=== PATIENT | male | born 1965 | race Hispanic/Latino ===

== ENCOUNTER 2017-03-01 02:36 | Emergency (ER) | payer MEDICAID, OTHER ==
[2017-03-01 02:49] VITALS: BP 145/44; PULSE 90; RESP 18; TEMP 98; O2SAT 98; BMI 23.6
--- NOTE | 2017-03-01 02:57 | ED PDOC ---
Arrival/HPI - General Chief Complaint: Back Pain Time Seen by Provider: 03/01/17 02:36 Historian: Patient - History of Present Illness Narrative History of Present Illness (Text): 03/01/17 02:51 Sid Irby is a 51 year old male who presents to the emergency department complaining of lower back pain following mechanical fall prior to arrival. Patient landed on his buttocks and states that pain is worsened with movement. Denies any numbness/weakness of extremity. Denies fever, chills, headache, dizziness, chest pain, shortness of breath, nausea, vomiting, diarrhea , urinary symptoms, or any other complaints at this time. Time/Duration: Prior to Arrival Symptom Onset: Sudden Severity Level: Mild Past Medical History - Provider Review Nursing Documentation Reviewed: Yes - Gastrointestinal Hx Gastrointestinal Disorders: Yes (DIVERTICULOSIS) - Psychiatric Hx Substance Use: Yes (marijuana) - Past Surgical History Past Surgical History: No Previous - Anesthesia Hx Anesthesia: No - Suicidal Assessment Feels Threatened In Home Enviroment: No Family/Social History - Physician Review Nursing Documentation Reviewed: Yes Family/Social History: No Known Family HX Smoking Status: Light Smoker < 10 Cigarettes Daily Hx Alcohol Use: Yes Hx Substance Use: Yes (marijuana) Hx Substance Use Treatment: No Allergies/Home Meds Allergies/Adverse Reactions: Allergies No Known Allergies Allergy (Verified 12/04/14 09:29) Home Medications: Home Meds Medication Instructions Recorded Confirmed Unobtainable 02/16/16 02/16/16 Review of Systems - Physician Review All systems were reviewed & negative as marked: Yes - Review of Systems Constitutional: Normal. absent: Fatigue, Fevers Respiratory: Normal. absent: SOB, Cough, Sputum Cardiovascular: Normal. absent: Chest Pain, Palpitations Musculoskeletal: Back Pain (lower back pain ) Psychiatric: Normal Physical Exam Vital Signs Reviewed: Yes Vital Signs Temp Pulse Resp BP Pulse Ox 03/01/17 02:48 98.0 F 90 18 145/44 L 98 Temperature: Afebrile Blood Pressure: Normal Pulse: Regular Respiratory Rate: Normal Appearance: Positive for: Well-Appearing, Non-Toxic, Comfortable Pain Distress: None Mental Status: Positive for: Alert and Oriented X 3 - Systems Exam Head: Present: Atraumatic, Normocephalic Pupils: Present: PERRL Conjunctiva: Present: Normal Mouth: Present: Moist Mucous Membranes Respiratory/Chest: Present: Clear to Auscultation, Good Air Exchange. No: Respiratory Distress, Accessory Muscle Use Cardiovascular: Present: Regular Rate and Rhythm, Normal S1, S2. No: Murmurs Abdomen: Present: Normal Bowel Sounds. No: Tenderness, Distention, Peritoneal Signs Back: Present: Normal Inspection. No: CVA Tenderness, Midline Tenderness, Paraspinal Tenderness Upper Extremity: Present: Normal Inspection. No: Cyanosis, Edema Lower Extremity: Present: Normal Inspection. No: Edema Neurological: Present: GCS=15, CN II-XII Intact, Speech Normal, Motor Func Grossly Intact, Normal Sensory Function Skin: Present: Warm, Dry, Normal Color. No: Rashes Psychiatric: Present: Alert, Oriented x 3, Normal Insight, Normal Concentration Medical Decision Making ED Course and Treatment: 03/01/17 02:59 Impression: A 51 year old male who presents to the emergency department complaining of lower back pain s/p mechanical fall. Plan: -- CT lumbar spine -- Reassess and disposition Progress Notes: 03/01/17 03:02 Patient eloped the emergency department. - Scribe Statement The provider has reviewed the documentation as recorded by the Iraidaibe Kelly Mckeon Provider Attestation: Provider Scribe Attestation: All medical record entries made by the Scribe were at my direction and personally dictated by me. I have reviewed the chart and agree that the record accurately reflects my personal performance of the history, physical exam, medical decision making, and the department course for this patient. I have also personally directed, reviewed, and agree with the discharge instructions and disposition. Disposition/Present on Arrival - Present on Arrival Any Indicators Present on Arrival: No History of DVT/PE: No History of Uncontrolled Diabetes: No Urinary Catheter: No History Surgical Site Infection Following: None - Disposition Have Diagnosis and Disposition been Completed?: Yes Diagnosis: Back pain Disposition: ELOPEMENT - ER ONLY Disposition Time: 03:00 Condition: UNKNOWN
== END 2017-03-01 03:10 | disposition left against medical advice (07) ==
LOC: ED 02:36
DX: M54.5 Low back pain (principal)

== ENCOUNTER 2017-03-02 10:54 | Emergency (ER) | payer MEDICAID ==
[2017-03-02 10:56] VITALS: BMI 23.6
[2017-03-02 11:04] VITALS: BP 111/80; PULSE 84; RESP 16; TEMP 98.8; O2SAT 97
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
== END 2017-03-02 13:42 | disposition home or self-care (01) ==
LOC: ED 10:54
DX: S32.2XXA Fracture of coccyx, initial encounter for closed fracture (principal); S30.0XXA Contusion of lower back and pelvis, initial encounter; W13.4XXA Fall from, out of or through window, initial encounter; Y92.009 Unspecified place in unspecified non-institutional (private) residence as the place of occurrence of the external cause; F17.210 Nicotine dependence, cigarettes, uncomplicated
CPT/HCPCS: 72131; 96372; 99282; J1885

== ENCOUNTER 2017-03-11 09:52 | Emergency (ER) | payer MEDICAID ==
[2017-03-11 10:06] VITALS: RESP 16; TEMP 97.7
--- NOTE | 2017-03-11 11:16 | ED PDOC ---
Arrival/HPI - General Chief Complaint: Back Pain Time Seen by Provider: 03/11/17 10:03 Historian: Patient - History of Present Illness Narrative History of Present Illness (Text): 03/11/17 11:10 Sid Irby is a 51 year old male, who reports a prior history of a "tailbone fracture" from a fall that he reports over a week ago, presents to the emergency department complaining of persistent back pain today. Patient denies change in character or location of pain. States pain is persistent and was worse today with ambulation. Denies abdominal pain. Denies diarrhea. Denies hematuria, denies leg weakness. Denies melena or bright red blood per rectum. Denies testicular pain or swelling. Denies new rash. Denies fever. Denies acute numbness or weakness. PMD: None Time/Duration: 24 hours Symptom Onset: Gradual Symptom Course: Unchanged Severity Level: Mild Activities at Onset: Light Context: Home Past Medical History - Provider Review Nursing Documentation Reviewed: Yes - Infectious Disease Hx of Infectious Diseases: None - Cardiac Hx Cardiac Disorders: No - Pulmonary Hx Respiratory Disorders: No - Neurological Hx Neurological Disorder: No - HEENT Hx HEENT Disorder: No - Renal Hx Renal Disorder: No - Endocrine/Metabolic Hx Endocrine Disorders: No - Hematological/Oncological Hx Blood Disorders: No - Integumentary Hx Dermatological Disorder: No - Musculoskeletal/Rheumatological Hx Musculoskeletal Disorders: No - Gastrointestinal Hx Gastrointestinal Disorders: Yes (DIVERTICULOSIS) - Genitourinary/Gynecological Hx Genitourinary Disorders: No - Psychiatric Hx Psychophysiologic Disorder: Yes Hx Depression: Yes Hx Substance Use: Yes (marijuana) - Past Surgical History Past Surgical History: No Previous - Anesthesia Hx Anesthesia: No - Suicidal Assessment Feels Threatened In Home Enviroment: No Family/Social History - Physician Review Nursing Documentation Reviewed: Yes Family/Social History: No Known Family HX Smoking Status: Light Smoker < 10 Cigarettes Daily Hx Alcohol Use: Yes Hx Substance Use: Yes (marijuana) Hx Substance Use Treatment: No Allergies/Home Meds Allergies/Adverse Reactions: Allergies No Known Allergies Allergy (Verified 03/11/17 10:05) Home Medications: Home Meds Medication Instructions Recorded Confirmed Meloxicam [Mobic] 1 tab PO DAILY 03/11/17 03/11/17 Review of Systems - Review of Systems Constitutional: absent: Fevers, Night Sweats Eyes: absent: Vision Changes ENT: absent: Hearing Changes, Voice Changes Respiratory: absent: SOB Cardiovascular: absent: Chest Pain, CAMARENA Gastrointestinal: absent: Abdominal Pain, Diarrhea, Nausea, Vomiting, Appetite Changes, Hematochezia, Hematemesis Genitourinary Male: absent: Dysuria, Urinary Output Changes Musculoskeletal: Back Pain, Other (denies hip knee or ankle pain). absent: Neck Pain Skin: absent: Rash, Pruritis, Laceration Neurological: absent: Headache, Dizziness, Focal Weakness, Seizure Endocrine: absent: Diaphoresis, Polydipsia Hemo/Lymphatic: absent: Adenopathy Psychiatric: absent: Anxiety Physical Exam - Physical Exam Narrative Physical Exam (Text): Head: Atraumatic. Normocephalic. Eyes: PERRL. EOMI. Conjunctivae are not pale. ENT: Mucous membranes are moist and intact. Oropharynx is clear and symmetric. Neck: Supple. Full ROM. No JVD. No lymphadenopathy. Cardiovascular: Regular rate. Regular rhythm. Distal pulses are 2+ and symmetric. Pulmonary/Chest: No evidence of respiratory distress. Clear to auscultation bilaterally. No wheezing, rales or rhonchi. Abdominal: Soft and non-distended. There is no tenderness. No rebound, guarding, or rigidity. No organomegaly. Good bowel sounds. No pulsatile masses. No inguinal masses. Back: No CVA tenderness. Paraspinal tenderness noted to lower lumbar region and sacral/coccyx region. There is old ecchymosis noted to bilateral buttocks with no muscle tension, no drainage. No midline deformity. Rectal: no melena or gross bleeding. Extremities: No edema. No cyanosis. No clubbing. Full range of motion in all extremities. No calf tenderness. Skin: Ecchmosis to lower lumbar region and buttocks bilaterlly. Neurological: Alert, awake, and oriented to person, place, time, and situation. Normal speech. Reflexes intact. No saddle anesthesia. Motor and sensory exam intact. Ambulatory, no foot drop. Psychiatric: Good eye contact. Normal interaction, affect, and behavior. Vital Signs Reviewed: Yes Vital Signs Temp Pulse Resp BP Pulse Ox 03/11/17 13:09 89 16 125/79 100 03/11/17 10:01 97.7 F 97 H 16 122/80 98 Temperature: Afebrile Blood Pressure: Normal Pulse: Tachycardic Respiratory Rate: Normal Appearance: Positive for: Non-Toxic, Uncomfortable Pain Distress: Moderate Mental Status: Positive for: Alert and Oriented X 3 Medical Decision Making ED Course and Treatment: 03/11/17 11:10 Impression: 51 year old male complaining of persistent back pain today. He has prior history of "back fracture" reportedly from fall over a week ago. Plan: -- review prior studies, labs, ua, pain medication -- Reassess and disposition Prior Visits: Notes and results from previous visits were reviewed. Patient last seen in ED on 03/02/2017 for "tail bone Pain" x 2-3 days. Patient was discharged home. Progress Notes: Patient CT from 03/02 reviewed: Past CT Lumbar on 03/02/2017 Creator : Sid Corona MD FINDINGS: VERTEBRAE: There appears to mildly displaced fracture of the sacrococcygeal junction best appreciated on sagittal sequences 601 image number [id number]. Followup MRI limited to the sacrum and coccyx could be performed could for further evaluation. There is mild overlying dorsal soft tissue swelling. The remaining vertebral bodies otherwise appear intact. There is adequate alignment. DISCS/SPINAL CANAL/NEURAL FORAMINA: L1-2: Disc space height maintained. No disc herniation or significant disc bulge. Central canal and exit foramina appear adequate. Note made of small partially bridging anterior osteophyte formation. . L2-3: Disc space height maintained. No disc herniation or significant disc bulge. Facets are slightly prominent. Central canal and exit foramina are adequate. . L3-4: Disc space height maintained. Minimal bulge of the posterior annulus. Facet joints are slightly prominent. Central canal and exit foramina appear adequate. . L4-5: The disc space height is maintained. Minor broad-based bulge of the posterior annulus results in some flattening of the ventral surface of the thecal sac however the overall central canal is adequate. Facets are mildly hypertrophic. Proximal exit foramina appear stenotic bilaterally left greater than right. L5-S1: Mild posterior disc space narrowing. Small broad-based though slightly asymmetric disc bulge larger on the right than left. The disc appears to minimally flatten the ventral surface of the thecal sac however the overall central canal appears adequate. Proximal exit foramina are marginal to slightly narrowed. . Note also made of small anterior partially bridging osteophyte seen at the T12- L1 and T11-T12 levels. PARASPINAL SOFT TISSUES: Paraspinal soft tissues grossly unremarkable. OTHER FINDINGS: Note made of partial sclerosis -fusion right SI joint. Note also made of a few scattered colonic diverticula along the sigmoid colon however no radiographic evidence of acute diverticulitis. Urinary bladder is incompletely distended which may account for slight wall thickening. Muscular hypertrophy may contribute. Cystitis would be less likely in a male patient. Other intrinsic/invasive wall lesion less likely though not completely excluded. There appear to be a tiny fat containing bilateral inguinal hernias left slightly larger than right. IMPRESSION: Minimally displaced fracture traversing the distal sacral/coccygeal junction best appreciated on sagittal sequence as detailed above. . There is mild overlying dorsal soft tissue swelling. Followup MRI limited to the sacrum and coccyx could be performed for further evaluation if necessary. Note however that the distal coccyx has not been completely visualized Remaining vertebral bodies otherwise appear intact. Very minor multilevel degenerative spondylosis most notably affecting the exit foramina at the L4-L5 level as detailed above. Diverticulosis without definitive radiographic evidence of acute diverticulitis. See above discussion for additional details and findings. Patient on exam has ecchymosis of buttocks that appears to be healing. No bleeding or drainage. Patient is noted to have no motor or sensory deficits. No bloody or painful bowel movements. No incontinence of urine or stool. He denies any abodminal pain. He denies any chest pain or shortness of breath. He states that when he was injured he landed directly on his buttocks. Denies leg pain or hip pain. None noted on exam. NV intact on exam. He denies any history of abdominal pain or nausea or vomiting or difficulty eating. He has not had follow-up with orthopedic physician. Pain medication given and on re-assessment pain improved, still located to lower back/buttock. No compartment syndrome or abscess noted. He states pain improved, he is ambulatory. Stressed need for follow-up with ortho and again I reviewed his prior CT findings with him and need for follow-up. As pain is improved, with no associated neuro deficits, fever or urinary symptoms, will discharge with instructions. Risks and side effects of medication reviewed with patient, risks reviewed. 03/11/17 16:42 - Lab Interpretations Lab Results: 03/11/17 11:30 03/11/17 11:30 Lab Results 03/11/17 11:30: Sodium 139, Potassium 4.4, Chloride 101, Carbon Dioxide 27, Anion Gap 15, BUN 19, Creatinine 1.0, Est GFR ( Amer) > 60, Est GFR (Non- Af Amer) > 60, Random Glucose 91, Calcium 9.5, Total Bilirubin 0.6, AST 56, ALT 83 H, Alkaline Phosphatase 132, Total Protein 8.7 H, Albumin 4.7, Globulin 3.9, Albumin/Globulin Ratio 1.2 03/11/17 11:30: Urine Color Yellow, Urine Appearance Clear, Urine pH 6.5, Ur Specific [place] 1.020, Urine Protein Negative, Urine Glucose (UA) Negative, Urine Ketones Negative, Urine Blood Negative, Urine Nitrate Negative, Urine Bilirubin Negative, Urine Urobilinogen 1.0 H, Ur Leukocyte Esterase Negative 03/11/17 11:30: PT 10.3, INR 0.95, APTT 28.4 03/11/17 11:30: WBC 9.2, RBC 4.69, Hgb 16.6, Hct 47.6, MCV 101.5, MCH 35.4 H, MCHC 34.9, RDW 12.7, Plt Count 261, MPV 10.0, Gran % 65.3, Lymph % (Auto) 25.3, [place] % (Auto) 6.4 H, Eos % (Auto) 2.7, Baso % (Auto) 0.3, Gran # 6.02, Lymph # 2.3, [place] # 0.6, Eos # 0.3, Baso # 0.03 - Medication Orders Current Medication Orders: Discontinued Medications Morphine Sulfate (Morphine) 4 mg IVP STAT STA Stop: 03/11/17 11:25 Last Admin: 03/11/17 11:40 Dose: 4 mg - Scribe Statement The provider has reviewed the documentation as recorded by the Nir Rowe Provider Scribe Attestation: All medical record entries made by the Iraidaibalberta were at my direction and personally dictated by me. I have reviewed the chart and agree that the record accurately reflects my personal performance of the history, physical exam, medical decision making, and the department course for this patient. I have also personally directed, reviewed, and agree with the discharge instructions and disposition. Disposition/Present on Arrival - Present on Arrival Any Indicators Present on Arrival: No History of DVT/PE: No History of Uncontrolled Diabetes: No Urinary Catheter: No History of Decub. Ulcer: No History Surgical Site Infection Following: None - Disposition Have Diagnosis and Disposition been Completed?: Yes Diagnosis: Back pain Disposition: HOME/ ROUTINE Disposition Time: 12:57 Patient Plan: Discharge Condition: GOOD Discharge Instructions (ExitCare): Back Pain (ED) Additional Instructions: For any change in location, character or intensity of pain, get rechecked. For any fevers, any abdominal pain, any bloody urine or stool, any difficulty urinating or moving bowels, any numbness or weakness, any testicular pain or swelling, any persistent or worsening of any symptoms, get rechecked. Take prescribed pain medication only as directed. Do not take Percocet and drink alcohol or drive or operate heavy machinery, risks have been reviewed. Follow-up with orthopedic doctor for history of prior fracture. Prescriptions: oxyCODONE/Acetaminophen [Percocet 5/325 mg Tab] 1 ea PO Q6 PRN #8 tab PRN Reason: severe pain Referrals: [facility] [place] [Outside] - Follow up with primary Forms: [employer] (Hungarian)
[2017-03-11] MEDS ORDERED: Morphine 4 mg/ml ISec IVP STA (11:24)
[2017-03-11 11:54] LABS: ADD MANUAL DIFF? NO
[2017-03-11 12:07] LABS: ALB/GLOB RATIO 1.2 (1.1-1.8); ALKALINE PHOSPHATASE 132 U/L (38-133); ALT/SGPT 83 U/L (7-56); AST/SGOT 56 U/L (15-59); BILIRUBIN,TOTAL 0.6 mg/dL (0.2-1.3); BLOOD UREA NITROGEN 19 mg/dL (7-21); CARBON DIOXIDE 27 mmol/L (21-33); CHLORIDE 101 mmol/L (95-110); GFR AFRICAN-AMERICAN > 60; GLUCOSE,RANDOM 91 mg/dL (70-110); POTASSIUM 4.4 mmol/L (3.6-5.0); SODIUM 139 mmol/L (132-148); TOTAL PROTEIN 8.7 g/dL (5.8-8.3)
[2017-03-11 12:08] LABS: PH,URINE 6.5 (4.7-8.0); URINE BILIRUBIN NEGATIVE (NEGATIVE); URINE BLOOD NEGATIVE (NEGATIVE); URINE GLUCOSE (UA) NEGATIVE (NEGATIVE); URINE KETONE NEGATIVE (NEGATIVE); URINE LEUKOCYTE ESTERASE NEGATIVE Leu/uL (NEGATIVE); URINE PROTEIN NEGATIVE mg/dL (<30 mg/dL)
[2017-03-11 12:13] LABS: INR 0.95 (0.93-1.08); PARTIAL THROMBOPLASTIN TIME 28.4 Seconds (23.7-30.8)
[2017-03-11 12:17] LABS: BASO # 0.03 K/mm3 (0.0-2.0); BASO % 0.3 % (0.0-3.0); EOS # 0.3 (0.0-0.7); EOS % 2.7 % (1.5-5.0); GRAN # 6.02 (1.4-6.5); GRAN % 65.3 % (50.0-68.0); HEMATOCRIT 47.6 % (42.0-52.0); LYMPH # 2.3 (1.2-3.4); LYMPH % 25.3 % (22.0-35.0); MEAN CELL VOLUME 101.5 fL (80.0-105.0); MEAN CORPUSCULAR HEMOGLOBIN 35.4 pg (25.0-35.0); MEAN CORPUSCULAR HGB CONC 34.9 g/dl (31.0-37.0); MONO # 0.6 (0.1-0.6); MONO % 6.4 % (1.0-6.0); PLATELET COUNT 261 10^3/uL (120.0-450.0); RED CELL DISTRIBUTION WIDTH 12.7 % (11.5-14.5); WHITE BLOOD COUNT 9.2 10^3/ul (4.5-11.0)
[2017-03-11 12:18] LABS: URINE APPEARANCE CLEAR (CLEAR); URINE COLOR YELLOW (YELLOW)
[2017-03-11 12:45] LABS: CALCIUM 9.5 mg/dL (8.4-10.5)
[2017-03-11 13:09] VITALS: BP 125/79; PULSE 89; O2SAT 100
== END 2017-03-11 13:17 | disposition home or self-care (01) ==
LOC: ED 09:52
DX: M54.9 Dorsalgia, unspecified (principal)
CPT/HCPCS: 80053; 81003; 85025; 85610; 85730; 96374; 99284; J2270

== ENCOUNTER 2017-09-17 16:13 | Emergency (ER) | payer MEDICAID ==
[2017-09-17 16:20] VITALS: BMI 25.1
[2017-09-17 17:09] LABS: URINE BILIRUBIN NEGATIVE (NEGATIVE); URINE BLOOD NEGATIVE (NEGATIVE); URINE GLUCOSE (UA) NEGATIVE (NEGATIVE); URINE KETONE NEGATIVE (NEGATIVE); URINE LEUKOCYTE ESTERASE NEGATIVE Leu/uL (NEGATIVE); URINE PROTEIN NEGATIVE mg/dL (<30 mg/dL); URINE UROBILINOGEN 0.2 E.U./dL (<1 E.U./dL)
[2017-09-17 17:09] LABS: BASO # 0.03 K/mm3 (0.0-2.0); BASO % 0.3 % (0.0-3.0); EOS # 0.2 (0.0-0.7); EOS % 1.8 % (1.5-5.0); GRAN # 6.52 (1.4-6.5); GRAN % 67.2 % (50.0-68.0); HEMATOCRIT 44.5 % (42.0-52.0); LYMPH # 2.5 (1.2-3.4); LYMPH % 25.6 % (22.0-35.0); MEAN CELL VOLUME 97.8 fl (80.0-105.0); MEAN CORPUSCULAR HEMOGLOBIN 34.5 pg (25.0-35.0); MEAN CORPUSCULAR HGB CONC 35.3 g/dl (31.0-37.0); MEAN PLATELET VOLUME 10.1 fl (7.0-11.0); MONO # 0.5 (0.1-0.6); MONO % 5.1 % (1.0-6.0); RED CELL DISTRIBUTION WIDTH 12.2 % (11.5-14.5); WHITE BLOOD COUNT 9.7 10^3/ul (4.5-11.0)
[2017-09-17 17:11] LABS: URINE APPEARANCE CLEAR (CLEAR); URINE COLOR YELLOW (YELLOW)
[2017-09-17 17:18] LABS: ALB/GLOB RATIO 1.3 (1.1-1.8); ALKALINE PHOSPHATASE 88 U/L (38-126); ALT/SGPT 42 U/L (7-56); AST/SGOT 35 U/L (17-59); BILIRUBIN,TOTAL 0.5 mg/dL (0.2-1.3); BLOOD UREA NITROGEN 12 mg/dL (7-21); CALCIUM 9.3 mg/dL (8.4-10.5); CARBON DIOXIDE 23 mmol/L (21-33); CHLORIDE 102 mmol/L (98-107); GFR AFRICAN-AMERICAN > 60; GLUCOSE,RANDOM 94 mg/dL (70-110); MAGNESIUM 1.8 mg/dL (1.7-2.2); POTASSIUM 4.3 mmol/L (3.6-5.0); SODIUM 135 mmol/L (132-148); TOTAL PROTEIN 7.8 g/dL (5.8-8.3)
[2017-09-17 17:30] LABS: TROPONIN I < 0.01 ng/mL
--- NOTE | 2017-09-17 19:00 | ED PDOC ---
Arrival/HPI - General Chief Complaint: Upper Extremity Problem/Injury Time Seen by Provider: 09/17/17 16:32 Historian: Patient - History of Present Illness Narrative History of Present Illness (Text): 51 y/o male w/ pmhx of cigarette smoking, old left shoulder martial arts injury , ex - alcoholic presents c/o exquisite shoulder pain after rising out of bed inthe morning and removing his heavy blankets , the pain was constat all day att imes asscoiated w/ mild dizziness, culminating in an episoe where it radiatied from his left shoulder across his left chest with a pulsating quality , he denies ay family history (+) for premature acs/ contiuing chect pain/ exertional exacerbation of the chest pain thereof. 09/17/17 18:56 Time/Duration: Prior to Arrival Symptom Course: Improving Quality: Aching Past Medical History - Provider Review Nursing Documentation Reviewed: Yes - Infectious Disease Hx of Infectious Diseases: None - Cardiac Hx Cardiac Disorders: No - Pulmonary Hx Respiratory Disorders: No - Neurological Hx Neurological Disorder: No - HEENT Hx HEENT Disorder: No - Renal Hx Renal Disorder: No - Endocrine/Metabolic Hx Endocrine Disorders: No - Hematological/Oncological Hx Blood Disorders: No - Integumentary Hx Dermatological Disorder: No - Musculoskeletal/Rheumatological Hx Musculoskeletal Disorders: No - Gastrointestinal Hx Gastrointestinal Disorders: Yes (DIVERTICULOSIS) - Genitourinary/Gynecological Hx Genitourinary Disorders: No - Psychiatric Hx Psychophysiologic Disorder: Yes Hx Substance Use: Yes (marijuana) - Past Surgical History Past Surgical History: No Previous - Anesthesia Hx Anesthesia: No Hx Anesthesia Reactions: No Hx Malignant Hyperthermia: No - Suicidal Assessment Feels Threatened In Home Enviroment: No Family/Social History - Physician Review Nursing Documentation Reviewed: Yes Family/Social History: No Known Family HX Smoking Status: Light Smoker < 10 Cigarettes Daily Hx Alcohol Use: Yes Hx Substance Use: Yes (marijuana) Hx Substance Use Treatment: No Allergies/Home Meds Allergies/Adverse Reactions: Allergies No Known Allergies Allergy (Verified 03/11/17 10:05) Home Medications: Home Meds Medication Instructions Recorded Confirmed No Known Home Med 09/17/17 09/17/17 Review of Systems - Physician Review All systems were reviewed & negative as marked: Yes - Review of Systems Constitutional: Normal Eyes: Normal ENT: Normal Respiratory: Normal Cardiovascular: Chest Pain Gastrointestinal: Diarrhea Genitourinary Male: Normal Musculoskeletal: Arthralgias Skin: Normal Neurological: Normal Endocrine: Normal Hemo/Lymphatic: Normal Psychiatric: Normal Physical Exam Vital Signs Reviewed: Yes Vital Signs Temp Pulse Resp Pulse Ox 09/17/17 16:20 98.8 F 72 20 97 Temperature: Afebrile Blood Pressure: Normal Pulse: Regular Respiratory Rate: Normal Appearance: Positive for: Well-Appearing, Non-Toxic, Comfortable Pain Distress: None Mental Status: Positive for: Alert and Oriented X 3 - Systems Exam Head: Present: Atraumatic, Normocephalic Pupils: Present: PERRL Extroacular Muscles: Present: EOMI Conjunctiva: Present: Normal Mouth: Present: Moist Mucous Membranes Neck: Present: Normal Range of Motion Respiratory/Chest: Present: Clear to Auscultation, Good Air Exchange. No: Respiratory Distress, Accessory Muscle Use Cardiovascular: Present: Regular Rate and Rhythm, Normal S1, S2. No: Murmurs Abdomen: Present: Normal Bowel Sounds. No: Tenderness, Distention, Peritoneal Signs Back: Present: Normal Inspection Upper Extremity: Present: Other (reproducible superoanterior shoulder pain, ttp in supraclavicular notch). No: Cyanosis, Edema Lower Extremity: Present: Normal Inspection. No: Edema Neurological: Present: GCS=15, CN II-XII Intact, Speech Normal, Motor Func Grossly Intact, Normal Sensory Function, Normal Cerebellar Funct, Norm Deep Tendon Reflexes Skin: Present: Warm, Dry, Normal Color. No: Rashes Psychiatric: Present: Alert, Oriented x 3, Normal Insight, Normal Concentration Medical Decision Making ED Course and Treatment: ekg 09/17/17 16:24 nsr @ 66bpm q waves in v1/v2 no arrythmogenic intervals , ekg 09/17/17 1857 NSR 61 bpm q waves in v1/v2 nonew onset ischemic st-t- changes relative to 1st other than questionable flpped t wave septally likley due to lead placement. 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 , and an orthopedist for his chronic left shoulder pin (likley due to rc cuff tendinitis) 09/17/17 19:02 - Lab Interpretations Lab Results: 09/17/17 16:50 09/17/17 16:50 Lab Results 09/17/17 16:50: Sodium 135, Potassium 4.3, Chloride 102, Carbon Dioxide 23, Anion Gap 15, BUN 12, Creatinine 1.1, Est GFR ( Amer) > 60, Est GFR (Non- Af Amer) > 60, Random Glucose 94, Calcium 9.3, Magnesium 1.8, Total Bilirubin 0.5, AST 35, ALT 42, Alkaline Phosphatase 88, Lactate Dehydrogenase 386, Total Creatine Kinase 147, Troponin I < 0.01, NT-Pro-B Natriuret Pep 78.6, Total Protein 7.8, Albumin 4.5, Globulin 3.3, Albumin/Globulin Ratio 1.3 09/17/17 16:50: PT 10.9, INR 1.00, APTT 35.0 09/17/17 16:50: WBC 9.7, RBC 4.55, Hgb 15.7, Hct 44.5, MCV 97.8, MCH 34.5, MCHC 35.3, RDW 12.2, Plt Count 248, MPV 10.1, Gran % 67.2, Lymph % (Auto) 25.6, [place] % (Auto) 5.1, Eos % (Auto) 1.8, Baso % (Auto) 0.3, Gran # 6.52 H, Lymph # 2.5, [place] # 0.5, Eos # 0.2, Baso # 0.03 09/17/17 16:40: Urine Color Yellow, Urine Appearance Clear, Urine pH 6.0, Ur Specific [place] 1.015, Urine Protein Negative, Urine Glucose (UA) Negative, Urine Ketones Negative, Urine Blood Negative, Urine Nitrate Negative, Urine Bilirubin Negative, Urine Urobilinogen 0.2, Ur Leukocyte Esterase Negative - RAD Interpretation Radiology Orders: 09/17/17 16:32 CHEST TWO VIEWS (PA/LAT) [RAD] Stat Disposition/Present on Arrival - Present on Arrival History of DVT/PE: No History of Uncontrolled Diabetes: No Urinary Catheter: No History of Decub. Ulcer: No History Surgical Site Infection Following: None - Disposition Referrals: [facility] Rebecca Garcia, [Primary Care Provider] - Follow up with primary
[2017-09-17 19:07] VITALS: PULSE 78; RESP 18
[2017-09-17 20:15] VITALS: BP 132/79; TEMP 98.6; O2SAT 98
--- NOTE | 2017-09-17 21:54 | ED PDOC ---
Physical Exam Vital Signs Temp Pulse Resp BP Pulse Ox 09/17/17 20:00 98.6 F 78 18 132/79 98 09/17/17 18:14 78 18 125/87 99 09/17/17 16:20 98.8 F 72 20 97 Medical Decision Making ED Course and Treatment: 09/17/17 20:00 Case was endorsed earlier to me by Dr. Hrady, pt with hx of left-sided chest pain/shoulder since this morning associated occasional dizziness. Pt is a smoker , question of possible muscular component, however not completely clear. Pt with normal labs here in ED, EKG significant for past septal infarct, otherwise normal. Second set of troponin endorsed to me which was pending is negative. Advised pt as to the need for admission for observation and further cardiac observation, pt states he felt fine and preferred to f/u outpt. He understands risks of leaving including the possibility of underlying heart disease/heart attack/. Pt to sign out AMA. - Lab Interpretations Lab Results: 09/17/17 16:50 09/17/17 16:50 Lab Results 09/17/17 18:50: Troponin I < 0.01 09/17/17 16:50: Sodium 135, Potassium 4.3, Chloride 102, Carbon Dioxide 23, Anion Gap 15, BUN 12, Creatinine 1.1, Est GFR ( Amer) > 60, Est GFR (Non- Af Amer) > 60, Random Glucose 94, Calcium 9.3, Magnesium 1.8, Total Bilirubin 0.5, AST 35, ALT 42, Alkaline Phosphatase 88, Lactate Dehydrogenase 386, Total Creatine Kinase 147, Troponin I < 0.01, NT-Pro-B Natriuret Pep 78.6, Total Protein 7.8, Albumin 4.5, Globulin 3.3, Albumin/Globulin Ratio 1.3 09/17/17 16:50: PT 10.9, INR 1.00, APTT 35.0 09/17/17 16:50: WBC 9.7, RBC 4.55, Hgb 15.7, Hct 44.5, MCV 97.8, MCH 34.5, MCHC 35.3, RDW 12.2, Plt Count 248, MPV 10.1, Gran % 67.2, Lymph % (Auto) 25.6, [place] % (Auto) 5.1, Eos % (Auto) 1.8, Baso % (Auto) 0.3, Gran # 6.52 H, Lymph # 2.5, [place] # 0.5, Eos # 0.2, Baso # 0.03 09/17/17 16:40: Urine Color Yellow, Urine Appearance Clear, Urine pH 6.0, Ur Specific [place] 1.015, Urine Protein Negative, Urine Glucose (UA) Negative, Urine Ketones Negative, Urine Blood Negative, Urine Nitrate Negative, Urine Bilirubin Negative, Urine Urobilinogen 0.2, Ur Leukocyte Esterase Negative I have reviewed the lab results: Yes - RAD Interpretation Radiology Orders: 09/17/17 16:32 CHEST TWO VIEWS (PA/LAT) [RAD] Stat 09/17/17 18:55 SHOULDER LEFT [RAD] Stat - EKG Interpretation Interpreted by ED Physician: Yes Type: 12 lead EKG Disposition/Present on Arrival - Present on Arrival Any Indicators Present on Arrival: No History of DVT/PE: No History of Uncontrolled Diabetes: No Urinary Catheter: No History of Decub. Ulcer: No History Surgical Site Infection Following: None - Disposition Have Diagnosis and Disposition been Completed?: Yes Diagnosis: Chest pain Disposition: AGAINST MEDICAL ADVICE Disposition Time: 20:15 Condition: STABLE Discharge Instructions (ExitCare): Chest Pain (ED) Referrals: [facility] Rebecca Garcia, [Primary Care Provider] - Follow up with primary Forms: [employer] (Italian)
--- NOTE | 2017-09-18 08:46 | RAD ---
HISTORY: cp COMPARISON: No prior. TECHNIQUE: Chest PA and lateral FINDINGS: LUNGS: No active pulmonary disease. PLEURA: No significant pleural effusion identified. No pneumothorax apparent. CARDIOVASCULAR: Normal. OSSEOUS STRUCTURES: No significant abnormalities. VISUALIZED UPPER ABDOMEN: Normal. OTHER FINDINGS: None. IMPRESSION: No active disease.
--- NOTE | 2017-09-18 08:53 | RAD ---
PROCEDURE: Radiographs of the Left Shoulder HISTORY: shoulder pain COMPARISON: No prior. FINDINGS: BONES: Normal. No fracture. JOINTS: Degenerative changes are seen in the acromioclavicular joint SOFT TISSUES: Normal. OTHER FINDINGS: None. IMPRESSION: No evidence of fracture. Degenerative changes in the acromioclavicular joint
--- NOTE | 2017-09-18 17:27 | CARD ---
APPROVED REPORT EKG Measurement Heart [id number] ID [id number] <Conclusion> Normal sinus rhythm with sinus arrhythmia Septal infarct, age undetermined Abnormal ECG
--- NOTE | 2017-09-18 17:35 | CARD ---
APPROVED REPORT EKG Measurement Heart [id number] <Conclusion> Normal sinus rhythm with sinus arrhythmia Septal infarct, age undetermined Abnormal ECG
== END 2017-09-17 20:18 | disposition left against medical advice (07) ==
LOC: ED 16:13
DX: R07.9 Chest pain, unspecified (principal)